=== PATIENT | male | born 1975 | race Caucasian/White ===

== ENCOUNTER → 2023-08-12 | Outpatient (CLI) | payer MEDICARE, OTHER ==
--- NOTE | 2023-08-12 13:47 | NM ---
EXAMINATION TYPE: NM hepatobiliary w EF DATE OF EXAM: 08/12/2023 12:51 PM COMPARISON: None CLINICAL INDICATION:Male, 47 years old with history of K81.1 CHRONIC CHOLECYSTITIS; TECHNIQUE: The patient was given 5.23 mCi of Technetium 99m-Mebrofenin as a radiotracer and multiple scintigraphic images were obtained of the abdomen. Gallbladder function was also assessed after the administration of ensure drink and additional scintigraphic images were obtained of the abdomen. A re gion of interest was drawn over the gallbladder and a timing activity curve was generated. The gallbl adder ejection fraction was calculated. FINDINGS: Normal uptake of radiotracer was identified within the liver with excretion into the hepatic and comm on biliary ducts. There was normal progressive washout of the liver over the course of the study. Rad iotracer uptake within the what is thought to represent the gallbladder at 32 minutes has an irregula r appearance with multiple photopenic areas. As well as small bowel activity was identified at 60 mi nutes. Maximum calculated gallbladder ejection fraction is: 47% at 30 minutes (Normal gallbladder ejection fraction is > 35%) IMPRESSION: Irregular filling of the what was thought to be the gallbladder. Findings could represent cholelithia sis. There is normal ejection fraction. Consider correlation with ultrasound imaging.
== END | disposition home or self-care (01) ==
LOC: RADNMMAIN 08-11 12:11
PROVIDERS: ATTEND Surgery Plastic and Reconstructive Surgery
DX: K81.1 Chronic cholecystitis (principal)
CPT/HCPCS: 78226; A9537

== ENCOUNTER 2023-08-17 08:52 | Day surgery (SDC) | payer MEDICARE, OTHER ==
[2023-08-16 10:24] VITALS: BMI 26.9
--- NOTE | 2023-08-17 08:37 | P.GSHP ---
History of Present Illness H&P Date: 08/17/23 CHIEF COMPLAINT: GERD HISTORY OF PRESENT ILLNESS: The patient is a 47-year-old male who presents reports gastroesophageal reflux disease. Upper endoscopy was offered for further evaluation and management. PAST MEDICAL HISTORY: Please see list. PAST SURGICAL HISTORY: Please see list. MEDICATIONS: Please see list. ALLERGIES: Please see list. SOCIAL HISTORY: No illicit drug use FAMILY HISTORY: No reports of Crohn disease or ulcerative colitis. REVIEW OF ORGAN SYSTEMS: CONSTITUTIONAL: No reports of fevers or chills. GI: Denies any blood in stools or constipation. PHYSICAL EXAM: VITAL SIGNS: Stable GENERAL: Well-developed and pleasant in no acute distress. HEENT: No scleral icterus. Extraocular movements grossly intact. Moist buccal mucosa. NECK: Supple without lymphadenopathy. CHEST: Unlabored respirations. Equal bilateral excursions. CARDIOVASCULAR: Regular rate and rhythm. Distal 2+ pulses. ABDOMEN: Soft, nondistended. MUSCULOSKELETAL: No clubbing, cyanosis, or edema. ASSESSMENT: 1. Gastroesophageal reflux disease PLAN: 1. Recommend proceeding with an upper endoscopy Past Medical History Past Medical History: GERD/Reflux, Hyperlipidemia History of Any Multi-Drug Resistant Organisms: None Reported Past Surgical History: No Surgical Hx Reported Additional Past Surgical History / Comment(s): EGD Past Anesthesia/Blood Transfusion Reactions: No Reported Reaction Past Psychological History: Depression Smoking Status: Never smoker Past Alcohol Use History: None Reported Past Drug Use History: None Reported Medications and Allergies Home Medications Medication Instructions Recorded Confirmed Type Famotidine [Pepcid] 20 mg PO HS 08/16/23 08/16/23 History Omeprazole [PriLOSEC] 20 mg PO AC-BID 08/16/23 08/16/23 History Rosuvastatin Calcium [Crestor] 40 mg PO HS 08/16/23 08/16/23 History Sertraline [Zoloft] 200 mg PO DAILY 08/16/23 08/16/23 History Ubidecarenone [Coenzyme Q10] 100 mg PO DAILY 08/16/23 08/16/23 History Allergies Allergy/AdvReac Type Severity Reaction Status Date / Time No Known Allergies Allergy Verified 08/16/23 09:56
[2023-08-17] MEDS: LACTATED RINGERS 1,000 ML IV SCH ×2 (09:19→09:56)
[2023-08-17 09:24] VITALS: RESP 16; TEMP 97.3
[2023-08-17] MEDS ORDERED: LIDOCAINE 1% INJ 10MG/ML (20 ML MDV) ONE (09:58)
[2023-08-17] MEDS ORDERED: PROPOFOL 10 MG/ML 20 ML VIAL IV ONE (09:58)
[2023-08-17 10:46] VITALS: BP 137/78; PULSE 78
--- NOTE | 2023-08-17 10:50 | P.PCN ---
Date of Procedure: 08/17/23 Description of Procedure: PREOPERATIVE DIAGNOSIS: Gastroesophageal reflux disease. Epigastric abdominal pain Hiatal hernia POSTOPERATIVE DIAGNOSIS: Gastroesophageal reflux disease. Gastric polyp Gastritis. Acute gastric ulcers without bleeding Diaphragmatic hiatal hernia, paraesophageal type III OPERATION: Esophagogastroduodenoscopy with biopsies along the esophagus, antrum and duodenum SURGEON: Odilia Estrada MD ANESTHESIA: MAC. INDICATIONS: The patient is a 47-year-old male who presents with reflux disease. Benefits and risks of the procedure were described. Informed consent was obtained. DESCRIPTION: The patient was brought into the endoscopy suite and laid in the left lateral decubitus position. An Olympus gastroscope was passed along the posterior oropharynx down to the distal esophagus where the squamocolumnar junction was encountered at 36 cm from the incisors. The stomach was entered and no bile reflux was found. Additional findings are listed below. Biopsies with cold forceps were obtained of the antrum. The first through third portion of the duodenum was examined. Retroflexion of the scope confirmed Hill grade 4 lower esophageal valve. The squamocolumnar junction demonstrated LA grade C erosive esophagitis. The stomach was desufflated. The patient tolerated the procedure well. FINDINGS: Squamocolumnar junction 36 cm from the incisors. Diaphragmatic hiatus at 43 cm. Hiatal hernia,7 cm Hill grade 4 lower esophageal valve. LA grade C erosive esophagitis. Biopsies obtained. Biopsies obtained of the duodenum. Chronic gastritis with biopsies obtained. Gastric polyp along the gastric cardia RECOMMENDATIONS: Recommend surgical repair of large hiatal hernia Plan - Discharge Summary Discharge Rx Participant: No New Discharge Prescriptions: New Sucralfate [Carafate] 1 gm PO BID #30 tablet Omeprazole [PriLOSEC] 40 mg PO DAILY #14 cap Continue Rosuvastatin Calcium [Crestor] 40 mg PO HS Sertraline [Zoloft] 200 mg PO DAILY Ubidecarenone [Coenzyme Q10] 100 mg PO DAILY Discontinued Omeprazole [PriLOSEC] 20 mg PO AC-BID Famotidine [Pepcid] 20 mg PO HS Discharge Medication List Rosuvastatin Calcium [Crestor] 40 mg PO HS 08/16/23 [History] Sertraline [Zoloft] 200 mg PO DAILY 08/16/23 [History] Ubidecarenone [Coenzyme Q10] 100 mg PO DAILY 08/16/23 [History] Omeprazole [PriLOSEC] 40 mg PO DAILY #14 cap 08/17/23 [Rx] Sucralfate [Carafate] 1 gm PO BID #30 tablet 08/17/23 [Rx] Follow up Appointment(s)/Referral(s): Odilia Estrada MD [STAFF PHYSICIAN] - 08/30/23 11:30 am Patient Instructions/Handouts: *[facility] - (Anesthesia) Discharge Instructions Outpatient Surgery, Hiatal Hernia (GEN), Gastritis (DC), Diet for Stomach Ulcers and Gastritis (GEN), Gastric Polyps (DC), Upper Endoscopy (DC) Discharge Disposition: HOME SELF-CARE
== END 2023-08-17 11:15 | disposition home or self-care (01) ==
LOC: ORWHC2ENDO 08:52
PROVIDERS: ATTEND Surgery Plastic and Reconstructive Surgery
DX: K29.50 Unspecified chronic gastritis without bleeding (principal); K44.9 Diaphragmatic hernia without obstruction or gangrene; K21.9 Gastro-esophageal reflux disease without esophagitis; E78.5 Hyperlipidemia, unspecified; K25.3 Acute gastric ulcer without hemorrhage or perforation; K31.7 Polyp of stomach and duodenum; Z79.899 Other long term (current) drug therapy
CPT/HCPCS: 88305; 43239; J2001; J2704

== ENCOUNTER → 2023-08-24 | Outpatient (CLI) | payer MEDICARE, OTHER ==
--- NOTE | 2023-08-24 11:05 | US ---
EXAMINATION TYPE: US gallbladder DATE OF EXAM: 08/24/2023 COMPARISON: NONE CLINICAL INDICATION: Male, 47 years old with history of K81.1 CHRONIC CHOLECYSTITIS; stones seen on H CATHY scan. abd pain, N/V since summer TECHNIQUE: Multiple sonographic images of the right upper quadrant are obtained. FINDINGS: EXAM MEASUREMENTS: Liver Length: 16.7 cm Gallbladder Wall: 0.3 cm CBD: 0.6 cm Right Kidney: 10.2 x 5.1 x 5.3 cm Pancreas: wnl Liver: wnl Gallbladder: +HAM sign, multiple stones, wall borderline Evidence for sonographic Lee's sign: no CBD: wnl Right Kidney: wnl IMPRESSION: Gallbladder filled with gallstones as seen on nuclear medicine scan on 08/12/2023.
== END | disposition home or self-care (01) ==
LOC: RADUSWWP 09:58
PROVIDERS: ATTEND Surgery Plastic and Reconstructive Surgery
DX: K80.10 Calculus of gallbladder with chronic cholecystitis without obstruction (principal)
CPT/HCPCS: 76705

== ENCOUNTER 2023-09-09 08:25 | Day surgery (SDC) | payer MEDICARE, OTHER ==
[2023-09-07 14:14] VITALS: BMI 27.0
--- NOTE | 2023-09-09 07:45 | P.GSHP ---
History of Present Illness H&P Date: 09/09/23 CHIEF COMPLAINT: Cholecystitis HISTORY OF PRESENT ILLNESS: The patient is a 47-year-old male who presents with history of epigastric including right upper quadrant abdominal pain. He underwent diagnostic studies for the gallbladder. Separately his clinical picture was consistent with cholecystitis. Now he presents for surgical intervention. PAST MEDICAL HISTORY: Please see list PAST SURGICAL HISTORY: Please see list MEDICATIONS: Please see list ALLERGIES: Denies. SOCIAL HISTORY: No illicit drug use or recent tobacco use FAMILY HISTORY: Pertinent for gallbladder disease REVIEW OF ORGAN SYSTEMS: CONSTITUTIONAL: No reports of fevers or chills. HEENT: Denies any troubles with the vision or hearing. ENDOCRINE: No reports of hypothyroidism. No diabetes. RESPIRATORY: No recent pneumonias. CARDIOVASCULAR: Denies chest pain or palpitations GI: No blood in stools or constipation. MUSCULOSKELETAL: Has occasional joint pain including back pain. NEURO: No seizure disorders or headaches. No recent stroke. PSYCH: No depression or suicidal ideation. HEMATOLOGIC: No personal or family history of DVTs or pulmonary emboli. PHYSICAL EXAM: VITAL SIGNS: Afebrile vital signs stable GENERAL: Well-developed pleasant male in no acute distress. HEENT: No scleral icterus. Extraocular movements grossly intact. Moist buccal mucosa. NECK: Supple without lymphadenopathy. CHEST: Unlabored respirations. Equal bilateral excursions. CARDIOVASCULAR: Regular rate regular rhythm rhythm. Distal 2+ pulses. ABDOMEN: Soft, nondistended. Tender along the epigastrium and right upper quadrant. MUSCULOSKELETAL: No clubbing, cyanosis, or edema. NEURO : No focal or lateralizing signs. Cranial nerves II-12 within normal limits. PSYCH: Alert and oriented to person, place and time. SKIN: Well perfused. Good skin turgor. ASSESSMENT: 1. Epigastric and right upper quadrant abdominal pain 2. Chronic cholecystitis PLAN: 1. Will need a robotic cholecystectomy possible open. Benefits and risks were described. 2. Heparin for DVT prophylaxis 5000 units. 3. Antibiotic prophylaxis. Past Medical History Past Medical History: GERD/Reflux, Hyperlipidemia Additional Past Medical History / Comment(s): Hietal hernia. History of Any Multi-Drug Resistant Organisms: None Reported Additional Past Surgical History / Comment(s): EGD 08-17-23 Past Anesthesia/Blood Transfusion Reactions: No Reported Reaction Additional Past Anesthesia/Blood Transfusion Reaction / Comment(s): no blood transfusion hx Smoking Status: Former smoker - Past Family History Father Family Medical History: Cancer Additional Family Medical History / Comment(s): Prostate Medications and Allergies Home Medications Medication Instructions Recorded Confirmed Type Rosuvastatin Calcium [Crestor] 40 mg PO HS 08/16/23 09/07/23 History Sertraline [Zoloft] 200 mg PO QAM 08/16/23 09/07/23 History Ubidecarenone [Coenzyme Q10] 100 mg PO DAILY 08/16/23 09/07/23 History Multivitamin [Multivitamins Adult 1 tab PO QAM 09/07/23 09/07/23 History Gummies] Omeprazole [PriLOSEC] 40 mg PO QAM 09/07/23 09/07/23 History Allergies Allergy/AdvReac Type Severity Reaction Status Date / Time No Known Allergies Allergy Verified 09/07/23 15:11
[~2023-09-09 08:25] MED LIST: ACETAMINOPHEN TAB 500 MG TAB PO PRN; HEPARIN SODIUM,PORCINE 5,000 UNIT/ML 1 ML VIAL SQ PRN; INDOCYANINE GREEN 25 MG VIAL IV STA; LACTATED RINGERS 1,000 ML IV SCH; MIDAZOLAM 2 MG/2 ML VIAL IV PRN; ONDANSETRON 4 MG/2 ML VIAL IVP PRN
[2023-09-09 09:03] VITALS: RESP 16
[2023-09-09 09:03] LABS: HCT 42.9 % (39.0-53.0); HGB 14.5 gm/dL (13.0-17.5); MCH 29.1 pg (25.0-35.0); MCHC 33.8 g/dL (31.0-37.0); MCV 86.1 fL (80.0-100.0); Mean Platelet Volume 8.5; Platelet Count 198 k/uL (150-450); RBC 4.98 m/uL (4.30-5.90); RDW 12.8 % (11.5-15.5); WBC 8.8 k/uL (3.8-10.6)
[2023-09-09] MEDS ORDERED: DEXAMETHASONE SOD PHOSPHATE 4 MG/ML 1 ML VIAL IVP ONE (09:05)
[2023-09-09] MEDS ORDERED: GLYCOPYRROLATE 0.2 MG/ML 2 ML VIAL ONE (09:15)
[2023-09-09] MEDS ORDERED: PROPOFOL 10 MG/ML 20 ML VIAL IV ONE (09:15)
[2023-09-09] MEDS ORDERED: NEOSTIGMINE 1 MG/ML 10 ML VIAL ONE (09:15)
[2023-09-09] MEDS ORDERED: KETOROLAC 15 MG/ML 1 ML VIAL ONE (09:15)
[2023-09-09] MEDS ORDERED: ePHEDrine 50 MG/ML 1 ML VIAL ONE (09:15)
[2023-09-09] MEDS ORDERED: MIDAZOLAM 2 MG/2 ML VIAL ONE (09:15)
[2023-09-09] MEDS ORDERED: SUCCINYLCHOLINE CHLORIDE 200 MG/10 ML VIAL IV ONE (09:15)
[2023-09-09] MEDS ORDERED: LIDOCAINE 1% INJ 10MG/ML (20 ML MDV) ONE (09:15)
[2023-09-09] MEDS ORDERED: fentaNYL (PF) 50 MCG/ML 2 ML AMP ONE (09:15)
[2023-09-09] MEDS ORDERED: ROCURONIUM 10 MG/ML (5 ML VIAL) IV ONE (09:15)
[2023-09-09] MEDS ORDERED: LIDOCAINE 0.5%-EPI 1:200,000 50 ML VIAL SQ ONE (09:22)
[2023-09-09] MEDS ORDERED: LACTATED RINGERS 1,000 ML IV ONE (11:03)
[2023-09-09] MEDS: HYDROmorphone 0.5 MG/0.5 ML SYRINGE IVP PRN ×3 (11:41→12:00)
[2023-09-09 11:52] VITALS: TEMP 97.8
[2023-09-09] MEDS ORDERED: ACETAMINOPHEN TAB 500 MG TAB ONE (12:40)
[2023-09-09] MEDS ORDERED: ACETAMINOPHEN TAB 500 MG TAB PO ONE (12:51)
[2023-09-09 13:15] LABS: ALT 32 U/L (4-49); AST 29 U/L (17-59); African American GFR (CKD) >90 (>60 ml/min/1.73 sqM); Albumin 4.9 g/dL (3.5-5.0); Alkaline Phosphatase 57 U/L (38-126); Anion Gap 12 mmol/L; Blood Urea Nitrogen 22 mg/dL (9-20); Calcium 9.5 mg/dL (8.4-10.2); Carbon Dioxide 27 mmol/L (22-30); Chloride 105 mmol/L (98-107); Glucose 103 mg/dL (74-99); Non-African American GFR(CKD) 86 (>60 ml/min/1.73 sqM); Potassium 3.7 mmol/L (3.5-5.1); Sodium 144 mmol/L (137-145); Total Bilirubin 0.7 mg/dL (0.2-1.3); Total Protein 7.8 g/dL (6.3-8.2)
--- NOTE | 2023-09-09 13:16 | P.OP ---
Date of Procedure: 09/09/23 Description of Procedure: EBL 100, gallbladder with multiple varicosities, adhesions infundibulum, multiple 5 cm 3 cm gallstone SURGEON: ODILIA ESTRADA MD PREOPERATIVE DIAGNOSES: 1. Acute cholecystitis 2. Symptomatic gallstones 3. Depressive disorder 4. Gastroesophageal reflux disease with hiatal hernia 5. Hyperlipidemia POSTOPERATIVE DIAGNOSES: 1. Acute cholecystitis 2. Symptomatic gallstones 3. Depressive disorder 4. Gastroesophageal reflux disease with hiatal hernia 5. Hyperlipidemia OPERATION: Robotic-assisted da Anita Xi laparoscopic cholecystectomy, multiport with FIREFLY ESTIMATED BLOOD LOSS: 100 mL. SPECIMENS REMOVED: Gallbladder. COMPLICATIONS: None. OPERATIVE FINDINGS: 1. Acute cholecystitis 2. Gallbladder with multiple varicosities and adhesions at infundibulum 3. Multiple 3 to 5 cm gallstones INDICATIONS: The patient is a 47 year-old male who presents with epigastric right upper quadrant pain, symptomatic gallstones and clinical features of acute cholecystitis. Surgical intervention with cholecystectomy was described. Robotic assisted laparoscopic approach was described. Benefits and risks of the procedure including but not limited to bleeding, infection, injury to the biliary tree was reviewed. Informed consent was obtained. DESCRIPTION OF PROCEDURE: Patient was brought to the operating room, placed in supine position. After general induction, the abdomen had been prepped and draped in standard sterile fashion. The robotic da Anita XI system was primed. After a timeout protocol was performed, the patient had been prepped and draped in standard sterile fashion. The patient was injected with indocyanine green. A 5 mm 0 degrees laparoscopic trocar entry was performed along the left upper quadrant. The abdomen insufflated to 15 mmHg pressure which was tolerated well. Diagnostic laparoscopy demonstrated no injury to bowel viscera or mesentery. The liver surface was unremarkable. A moderately distended gallbladder was identified adding complexity to the case. Next, two 8 mm robotic ports were placed along the right upper abdomen. The camera 8-mm port was maintained along the epigastrium. Another 8 mm port was placed along the left upper abdominal wall after exchanging the 5 mm port. Please note that the ports were placed at least 10 to 15 cm away from the target anatomy of the gallbladder. The robot was docked along the left lateral abdomen. The patient was repositioned in reverse Trendelenburg position with the right side up. Using a grasper for arm 3, a grasper for arm 4, including hook cautery for arm 1, the robotic system was docked and primed as described. Instruments were interchanged by the prosthetics assistant including hook cautery, Bovie cautery and clip appliers. I had sat at the console. The gallbladder was reflected towards the dome of the liver. Dense adhesions were found along the cystic duct and infundibulum requiring dome down technique. Using a sponge, the liver was reflected towards the diaphragm and starting at the gallbladder fundus, hook cautery was used to find the avascular plane between the liver and the gallbladder. Multiple bleeding vessels along the gallbladder wall was identified. Moderate bleeding came from blood vessels from the gallbladder wall. As the gallbladder was dissected from the hepatic fossa, hemostasis was checked using vessel sealer along the posterior gallbladder. Next, indocyanine green was used to confirm the cystic duct. The cystic duct was short and dissection was performed at the junction of the cystic duct and infundibulum. Large dilated accessory artery was identified along the hepatic fossa and undisturbed. The infundibulum was retracted laterally to expose the cystic duct away from the common bile duct. The cystic duct was dissected free from its surrounding tissue. FIREFLY was used to identify the cystic structures. A critical view of safety was obtained. Large PLASTIC clips were used throughout the entire case. Using a clip fashion styling intern, a clip was placed at the junction of the infundibulum and cystic duct. The cystic duct was divided using vessel sealer. Next, the cystic artery was divided using vessel sealer. Electro-Bovie cautery and vessel sealer was used to remove the gallbladder without decompression. Hemostasis was checked and found to be adequate. The robot was undocked. I re-scrubbed into the case. A 10 mm Endo Catch bag was used to remove the gallbladder in total via the left upper quadrant incision after widening the incision. The specimen was removed from the abdominal cavity. Johnnie Barnard and 0 Vicryl was used to close the fascial defect of the left upper quadrant. All pneumoperitoneum instruments were evacuated from the abdominal cavity. The incisions were cleansed using dilute hydrogen peroxide. The incisions were reapproximated using 4-0 Monocryl in an interrupted subcuticular fashion. Please note along the trocar sites, local anesthetic was placed as a field block prior to insertion of all instruments. Liquid glue was applied to the skin. Optifoam dressing was applied along the left upper quadrant incision. Abdominal binder was placed. At the end of the procedure needle, sponge, and instrument count had been verified correct by the reliability technicians. The patient was transferred to postanesthesia care unit in stable condition. Intraoperative films were shared with the patient's family who were pleased with the level of care. Plan - Discharge Summary Discharge Rx Participant: No New Discharge Prescriptions: New Ibuprofen [Motrin] 600 mg PO Q8HR PRN #30 tab PRN Reason: Pain Simethicone [Gas-X] 125 mg PO AC-TID PRN #20 capsule PRN Reason: Pain Acetaminophen Tab [Tylenol Tab] 1,000 mg PO Q6HR PRN #30 tablet PRN Reason: Pain Continue Rosuvastatin Calcium [Crestor] 40 mg PO HS Sertraline [Zoloft] 200 mg PO QAM Omeprazole [PriLOSEC] 40 mg PO QAM Ubidecarenone [Coenzyme Q10] 100 mg PO DAILY Multivitamin [Multivitamins Adult Gummies] 1 tab PO QAM Discharge Medication List Rosuvastatin Calcium [Crestor] 40 mg PO HS 08/16/23 [History] Sertraline [Zoloft] 200 mg PO QAM 08/16/23 [History] Ubidecarenone [Coenzyme Q10] 100 mg PO DAILY 08/16/23 [History] Multivitamin [Multivitamins Adult Gummies] 1 tab PO QAM 09/07/23 [History] Omeprazole [PriLOSEC] 40 mg PO QAM 09/07/23 [History] Acetaminophen Tab [Tylenol Tab] 1,000 mg PO Q6HR PRN #30 tablet 09/09/23 [Rx] Ibuprofen [Motrin] 600 mg PO Q8HR PRN #30 tab 09/09/23 [Rx] Simethicone [Gas-X] 125 mg PO AC-TID PRN #20 capsule 09/09/23 [Rx] Follow up Appointment(s)/Referral(s): Odilia Estrada MD [STAFF PHYSICIAN] - 10/04/23 5:00 pm (TELEHEALTH) Patient Instructions/Handouts: *Sur[facility] - (Anesthesia) Discharge Instructions Outpatient Surgery, Low Fat Diet (DC), Laparoscopic Cholecystectomy (DC) Activity/Diet/Wound Care/Special Instructions: TELEHEALTH - DR WILL CALL YOU BETWEEN 8 am to 8 pm Recommend low-fat diet for the next 2 days. No lifting over 10 pounds in 2 weeks until Sep 23December shower. No bath tub soaks for two weeks until Sep 23 Diet as tolerated. Use Tylenol, simethicone and ibuprofen or Aleve scheduled for the next 24-48 hours for best pain relief. Use ice along incisions for today to prevent swelling. Discharge Disposition: HOME SELF-CARE
[2023-09-09] MEDS ORDERED: TAMSULOSIN 0.4 MG CAP.ER.24H PO ONE (13:26)
[2023-09-09 14:41] VITALS: BP 115/78; PULSE 80
== END 2023-09-09 14:31 | disposition home or self-care (01) ==
LOC: OR 08:25
PROVIDERS: ATTEND Surgery Plastic and Reconstructive Surgery
DX: K80.12 Calculus of gallbladder with acute and chronic cholecystitis without obstruction (principal); F32.A Depression, unspecified; K21.9 Gastro-esophageal reflux disease without esophagitis; K44.9 Diaphragmatic hernia without obstruction or gangrene; E78.5 Hyperlipidemia, unspecified; Z87.891 Personal history of nicotine dependence; Z80.42 Family history of malignant neoplasm of prostate; F90.9 Attention-deficit hyperactivity disorder, unspecified type; Z79.899 Other long term (current) drug therapy
CPT/HCPCS: 47562; S2900; 80053; 85027; 88304